=== PATIENT | female | born 1980 | race Caucasian/White ===

== ENCOUNTER 2024-01-21 09:19 | Emergency (ER) | payer OTHER, SELFPAY ==
[2024-01-21 09:19] VITALS: BP 136/89; PULSE 79; RESP 16; TEMP 37; O2SAT 99; BMI 34.7
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
[2024-01-21] MEDS: Ibuprofen 600 MG Tablet PO (09:55)
[2024-01-21] MEDS: oxyCODONE 5 MG Tablet PO (09:55)
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
--- NOTE | 2024-01-21 11:15 | CM.ED ---
Social Work Reason for visit: No PCP Patient verified that she does have a PCP physician, stating that her last one retired and she has just not met the new one yet. No further needs identified. Ayanna Aguero, ANESTHESIA ATTENDING, ASSISTANT LABORATORY DIRECTOR
[2024-01-21 11:19] VITALS: BP 128/84; PULSE 76; RESP 18; O2SAT 99
[2024-01-21 11:39] VITALS: BP 128/84; PULSE 82; RESP 18; TEMP 36.8; O2SAT 99
== END 2024-01-21 11:40 | disposition home or self-care (01) ==
PROVIDERS: Emergency Provider Emergency Medicine; Visit Provider Emergency Medicine
DX: S00.83XA Contusion of other part of head, initial encounter (principal); S40.812A Abrasion of left upper arm, initial encounter; S80.11XA Contusion of right lower leg, initial encounter; S20.212A Contusion of left front wall of thorax, initial encounter; S00.511A Abrasion of lip, initial encounter; S93.401A Sprain of unspecified ligament of right ankle, initial encounter; V43.52XA Car driver injured in collision with other type car in traffic accident, initial encounter; Y92.410 Unspecified street and highway as the place of occurrence of the external cause
CPT/HCPCS: 71046; 73030; 73590; 73610; 99284

== ENCOUNTER 2024-11-23 10:00 | Outpatient (RCR) | payer OTHER, SELFPAY ==
[2024-11-16 10:43] VITALS: BP 132/84; PULSE 75; RESP 18; TEMP 36.4; BMI 34.9
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
--- NOTE | 2024-11-16 14:04 | WC ---
PHOTO- RIGHT LAT ANKLE 11/16/24
--- NOTE | 2024-11-18 13:04 | WC ---
called pt to inform her that her WC came back positive and that Carolyn is going to start her on an antibiotic Doxycycline 100mg 1 tab po BID [id number]. pt understoods and script will be called into her pharmacy [facility]. Call placed after speaking to pt to [facility] in [place].
--- NOTE | 2024-11-21 11:51 | WC ---
received fax from [facility] for WC result. Called pt to inform of 2nd antibiotic that needs to be taken. informed of Metronidazole 250mg 1 tabl PO TID for 14 days. pt understands. after speaking to pt called pt pharmacy [facility] for the script.
[2024-11-23 10:47] VITALS: BP 107/74; PULSE 71; RESP 18; TEMP 36.3; BMI 34.9
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
== END 2024-11-29 23:59 | disposition home or self-care (01) ==
LOC: WC 10:00
PROVIDERS: PCP Student in an Organized Health Care Education/Training Program; Referring Provider Podiatrist Foot & Ankle Surgery; Visit Provider Nurse Practitioner
DX: T81.31XA Disruption of external operation (surgical) wound, not elsewhere classified, initial encounter (principal); T81.49XA Infection following a procedure, other surgical site, initial encounter; R60.0 Localized edema; Y83.8 Other surgical procedures as the cause of abnormal reaction of the patient, or of later complication, without mention of misadventure at the time of the procedure
CPT/HCPCS: 11043; 87070; 87075; 87077; 87186; 87205

== ENCOUNTER 2024-12-28 08:45 | Outpatient (RCR) | payer OTHER, SELFPAY ==
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
--- NOTE | 2024-12-01 09:32 | WC ---
PHOTO-RIGHT ANKLE 11/30/24
--- NOTE | 2024-12-01 09:36 | WC ---
PHOTO-RIGHT ANKLE 11/30/24
[2024-12-07 11:13] VITALS: BP 115/80; PULSE 89; RESP 15; TEMP 36.1
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
--- NOTE | 2024-12-08 09:31 | WC ---
PHOTO-RIGHT ANKLE 12/07/24
[2024-12-14 11:33] VITALS: BP 114/69; PULSE 73; RESP 18; TEMP 35.9
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
--- NOTE | 2024-12-15 10:15 | WC ---
PHOTO-RIGHT MED ANKLE 12/14/24
[2024-12-28 09:01] VITALS: BP 126/73; PULSE 89; RESP 18; TEMP 36.1
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
--- NOTE | 2024-12-29 11:36 | WC ---
PHOTO-RIGHT MED ANKLE 12/28/24
== END 2024-12-30 23:59 | disposition home or self-care (01) ==
LOC: WC 08:45
PROVIDERS: PCP Student in an Organized Health Care Education/Training Program; Referring Provider Podiatrist Foot & Ankle Surgery; Visit Provider Nurse Practitioner
DX: T81.31XA Disruption of external operation (surgical) wound, not elsewhere classified, initial encounter (principal); T81.49XA Infection following a procedure, other surgical site, initial encounter; R60.0 Localized edema; Y83.8 Other surgical procedures as the cause of abnormal reaction of the patient, or of later complication, without mention of misadventure at the time of the procedure
CPT/HCPCS: 11042

== ENCOUNTER 2025-01-11 08:58 | Outpatient (RCR) | payer OTHER, SELFPAY ==
[2025-01-11 09:13] VITALS: BP 152/92; PULSE 79; RESP 18; TEMP 36
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
--- NOTE | 2025-01-12 09:05 | WC ---
PHOTO-RIGHT ANKLE 01/11/25
== END 2025-01-12 09:09 | disposition home or self-care (01) ==
LOC: WC 08:58
PROVIDERS: PCP Student in an Organized Health Care Education/Training Program; Referring Provider Podiatrist Foot & Ankle Surgery; Visit Provider Nurse Practitioner
DX: T81.31XA Disruption of external operation (surgical) wound, not elsewhere classified, initial encounter (principal); T81.49XA Infection following a procedure, other surgical site, initial encounter
CPT/HCPCS: 99213; G0463